=== PATIENT | female | born 1990 | race Asian ===

== ENCOUNTER 2025-04-29 06:04 | Emergency (ER) | payer OTHER, SELFPAY ==
[2025-04-29 06:11] VITALS: BP 122/80; PULSE 73; RESP 16; TEMP 36.9; O2SAT 100
[2025-04-29 06:12] VITALS: BMI 25.0
--- NOTE | 2025-04-29 06:20 | PD.EDVAGBL ---
ED OB Contraction Preg RMI/HPI General Chief complaint: Vaginal Bleeding Stated complaint: ABD PAIN,VAGINAL BLEEDING Time Seen by Provider: 04/29/25 06:20 Source: patient Arrival date/time: 04/29/25 06:04 Mode of arrival: ambulatory Limitations: no limitations RME / HPI RME / HPI Narrative: 34-year-old female presents to ED with complaint of vaginal bleeding that began 2 days ago. Last menstrual period was March 01, 2025. MD Complaint: abdominal pain and vaginal bleeding Onset (ago): day(s) (2 days that began spotting and is now vaginal bleeding.) Consistency: constant Location: abdomen (Left lower quadrant) Quality: cramping Related Data Previous Rx's ?Medication ?Instructions ?Recorded methotrexate sodium 15 mg tablet 30 mg (2 x 15 mg) PO .once 1 day 04/29/25 #2 tabs Allergies Allergy/AdvReac Type Severity Reaction Status Date / Time No Known Allergies Allergy Verified 04/29/25 06:09 Review of Systems Constitutional Constitutional: Reports system reviewed and no additional complaints, except as documented Eyes Eyes: Reports system reviewed and no additional complaints, except as documented, Denies dry eyes, Denies exophthalmos and Reports floaters Cardiovascular Cardiovascular: Denies chest pain with activity and Denies claudication ED Exam Narrative Physical exam: The abdomen is mildly tender to palpation in the left lower quadrant. There is no guarding and there is no apparent masses. General Limitations: Present no limitations General appearance: Present alert and in no apparent distress Head Head exam: Present atraumatic Eye Eye exam: Present normal appearance and EOMI ENT ENT exam: Present normal exam, normal oropharynx and mucous membranes moist Neck Neck exam: Present normal inspection, full ROM and trachea midline Respiratory Respiratory exam: Present normal lung sounds bilaterally Cardiovascular Cardiovascular exam: Present regular rate, normal rhythm and normal heart sounds Abdominal Exam Abdominal exam: Present soft, tenderness (There is mild tenderness to palpation in the left lower quadrant.) and normal bowel sounds Rectal Exam Rectal exam: Present deferred Extremities Exam Extremities exam: Present normal inspection and full ROM Back Exam Back exam: Present normal inspection and full ROM Neurological Exam Neurological exam: Present alert and oriented X3 Psychiatric Psychiatric exam: Present normal affect and normal mood Skin Skin exam: Present warm, dry, intact and normal color Course Course Course Narrative: Patient will have CBC, CMP, UA, hcg quality, US OB, RH. Quality Measures none Orders Category Date Time Status US OB <= 14 weeks fetus Stat Exams 04/29/25 06:28 Completed Beta HCG,Quantitative Stat Lab 04/29/25 06:52 Completed CBC Stat Lab 04/29/25 06:52 Completed CMP [Comprehensive Metabolic Panel] Stat Lab 04/29/25 06:52 Completed Lipase Stat Lab 04/29/25 06:52 Completed Rh Testing Only Stat Lab 04/29/25 06:52 Completed DONE Vital Signs Vital signs: Vital Signs Temperature 98.4 F 04/29/25 06:11 Pulse Rate 73 04/29/25 06:11 Respiratory Rate 16 04/29/25 06:11 Blood Pressure 122/80 04/29/25 06:11 Pulse Oximetry (%) 100 04/29/25 06:11 Oxygen Delivery Method Room Air 04/29/25 06:11 Pulse ox room air 100% Vaginal Bleeding MDM Narrative MDM Narrative: Patient has a left-sided ectopic , I consulted with Dr. Bates and Dr. LAUREN who will see the patient in the ED. I spoke with Dr. LAUREN who was sent to the pharmacy of the patient's choice methotrexate and the patient will follow-up with Dr. Lauren. She is discharged in no apparent distress. Patient data External records reviewed:: Other (specify) (NA) Clinical information provided by:: patient Social determinants that could affect healthcare access:: none (NA) Patient has the following chronic illnesses:: NA How is presenting disease/condition affected by chronic disease/condition?: no chronic disease (NO APPARENT CHRONIC DISEASE) Evaluation data The following diagnostics were reviewed and interpreted by me:: other (specify) (na) Lab and/or radiology exams considered but not ordered:: NA Interpretation Summary: NA Medications / Prescriptions Medications or Prescriptions considered but not ordered:: NA Medication administrations:: NA Consultations Consultation(s) initiated? (list below): No Consultation #1 (Physician, Specialty, Details): NA Diagnosis Vaginal Bleeding Differential Diagnosis: threatened , dysfunctional uterine bleeding and menometrorrhagia Most likely diagnosis given after review of the tests above:: NA Admission Indicated Admission indicated?: not indicated Explain why admission is indicated or not indicated:: Patient did not want to go to surgery and instead elected for methotrexate. Admission Request Was there a request for admission?: No Admission Attestation Admission request attestation: NA Disposition Plan Disposition Plan: Discharge Discharge Attestation Discharge Attestation: The patient and all family members were given an opportunity to ask questions and understood the discharge instructions. Discharge instructions specifically effects, indications for sooner follow up or return to the emergency department, and the expected course of current diagnosis. Patient condition: Stable Discharge Plan Plan Patient Disposition: HOME (Self Care) Discharge Disposition comment: HCG of 02/01 and 02/04. Return OBGYN clinic on 02/05 and 02/12 Patient condition on transfer: Stable Prescriptions/Referrals Prescriptions/Med Rec: New methotrexate sodium 15 mg tablet 30 mg PO .once 1 Days Qty: 2 0RF Referrals: No Primary/Family,Physician [Primary Care Provider] - In 1 week Outpatient Orders: Beta HCG,Quantitative (Routine) Timeframe: 20250506 Location: Determined by Patient Ordered By: Jon Lauren Beta HCG,Quantitative (Routine) Timeframe: 20250503 Location: Determined by Patient Ordered By: Jon Lauren Problem List Clinical Impression: Ectopic Patient/Caregiver Discharge Instructions Discharge Activity: activity as tolerated Print Language: Citizen Of [place] Stand Alone Forms: [employer] Award Info., Patient Portal Info Letter PA/APPLICATIONS SUPPORT SPECIALIST Supervising Physician PA/APPLICATIONS SUPPORT SPECIALIST Supervising Physician: BERNARDO
--- NOTE | 2025-04-29 06:28 | XR_ITS ---
Examination: Complete OB ultrasound, less than 14 weeks, transabdominal Date and time of exam: April 29, 2025 0752 hours INDICATIONS: Onset severe pelvic pain and vaginal bleeding today Technique: Obstetrical ultrasound images less than 14 weeks performed via transabdominal imaging Findings: Uterus 14.5 cm with anterior vascular uterine fundal mass 7.8 x 7.1 x 7.9 cm No intrauterine gestation Right ovary 9.5 cm arterial flow, 5.8 x 7.9 x 8.4 cm Left ovary 3.5 cm arterial flow, left fallopian ectopic CRL 0.5 cm correspondences 6 weeks 2 days gestational age, no cardiac motion IMPRESSION: Positive for left ectopic which appears within the fallopian tube
[2025-04-29 07:35] LABS: Basophils # (Auto) 0.1 Thou/mm3 (0.0-0.2); Basophils % (Auto) 1 % (0-2.5); Eosinophils # (Auto) 0.1 Thou/mm3 (0.0-0.5); Eosinophils % (Auto) 1 % (0-10); Hematocrit 26.5 % (36.0-46.0); Immature Granulocytes Auto 0.03 Thou/mm3 (0.00-0.00); Lymphocytes # (Auto) 1.1 Thou/mm3 (1.0-4.8); Lymphocytes % (Auto) 11 % (10-50); Mean Corpuscular HGB Conc 29.4 g/dl (31.0-37.0); Mean Corpuscular Hemoglobin 20.4 pg (25.0-35.0); Mean Corpuscular Volume 69 fL (80-100); Monocytes # (Auto) 0.4 Thou/mm3 (0.0-0.8); Monocytes % (Auto) 4 % (0-12); Neutrophils # (Auto) 8.7 Thou/mm3 (1.8-7.7); Neutrophils % (Auto) 84 % (37-80); Nucleated Red Blood Cell # 0.00 Thou/mm3 (0.00-0.00); Nucleated Red Blood Cell % 0 /100 WBC (0); Platelet Count 313 Thou/mm3 (140-440); RDW Standard Deviation 47.6 fL (36.4-46.3); Red Blood Count 3.83 Miln/mm3 (4.00-5.20); White Blood Count 10.4 Thou/mm3 (3.6-11.0)
[2025-04-29 07:38] LABS: Hemoglobin 7.8 g/dL (12.0-16.0)
[2025-04-29 07:40] LABS: Alanine Aminotransferase 21 U/L (10-49); Albumin, Serum 4.2 gm/dL (3.5-5.0); Albumin/Globulin Ratio 1.3 (1.2-2.2); Alkaline Phosphatase 42 U/L (46-116); Anion Gap 8 (7-16); Aspartate Amino Transferase 27 U/L (0-34); BUN/Creatinine Ratio 17 Ratio (12-20); Bilirubin,Total 0.3 mg/dL (0.3-1.2); Blood Urea Nitrogen 10 mg/dL (9-23); Calcium 8.8 mg/dL (8.3-10.6); Calcium (Corrected) 8.8 mg/dL (8.5-10.1); Carbon Dioxide 23.6 mMol/L (20.0-31.0); Chloride 108 mMol/L (98-107); Creatinine (Component) 0.6 mg/dL (0.6-1.3); Estimated Creatinine Clearance 98.4 mL/min (>60); Globulin 3.2 gm/dL (2.3-3.5); Glucose 110 mg/dL (74-106); Lipase 51 U/L (12-53); Osmolality,Calculated 279 (275-295); Potassium 3.9 mMol/L (3.4-5.1); Sodium 140 mMol/L (136-145); Total Protein 7.4 gm/dL (5.7-8.2); eGFR > 60 See Note
[2025-04-29 07:51] LABS: Beta HCG,Quantitative 1547 mIU/mL (<5.0)
[2025-04-29 09:37] VITALS: BP 121/77; PULSE 61; RESP 18; TEMP 37; O2SAT 100
--- NOTE | 2025-04-29 10:30 | ESCONSULT_ITS ---
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 The patient reports experiencing pain primarily in the lower left abdomen area. She states that she is a little bit better compared to her previous condition, suggesting some improvement in her symptoms. The ectopic has been confirmed through medical imaging and hormone level testing. The is located in the fallopian tube, measuring 6 weeks and 5 days with no detectable heartbeat. The patient's hormone level is 1500, which correlates with the imaging findings. The patient initially had limited understanding of what an ectopic entails and requested more detailed information from the physician. The patient expresses concern about potential dangers to future pregnancies. No other associated symptoms or impact on daily functioning were explicitly mentioned in the conversation. Obstetric History: A0 L0 Current : Ectopic , gestational age 6 weeks and 5 days, no heartbeat detected Medical History: Ectopic , currently 6 weeks and 5 days gestation Review of Systems: Positive for lower left abdominal pain. Diagnostic Test Results and Labs: - Ultrasound (TueApr 29 2025): Ectopic in fallopian tube, measuring 6 weeks and 5 days, no heartbeat detected - hCG (TueApr 29 2025): 1500 (units not specified) cc:: cc: Review of Systems Review of Systems Systems Reviewed: All systems reviewed, normal except as documented Meds Home Medications and Allergies Allergies Allergy/AdvReac Type Severity Reaction Status Date / Time No Known Allergies Allergy Verified 04/29/25 06:09 Exam - [employer] Vital Signs Temp Pulse Resp BP Pulse Ox O2 Del Method 98.6 F 61 18 121/77 100 Room Air 04/29/25 09:37 04/29/25 09:37 04/29/25 09:37 04/29/25 09:37 04/29/25 09:37 04/29/25 09:37 Constitutional Constitutional: no acute distress Routine HEENT Exam Head: Present normocephalic and atraumatic Eye: Present EOMI and PERRL ENT: Present mucous membranes moist Routine Neck Exam Neck: Present supple and trachea midline Routine Respiratory Exam Respiratory: Present chest non-tender, lungs clear, normal breath sounds and no resp distress Routine Cardiovascular Exam Cardiovascular: Present RRR Routine Abdominal Exam Abdominal: Present soft, normoactive bowel sounds and tenderness (LLQ, mild) Routine Extremities Exam Extremities: Present full ROM Routine Skin Exam Skin: Present intact and dry Routine Neurological Exam Neurological: Present alert, oriented X3 and CN II-XII intact Routine Psychiatric Exam Psychiatric: Present normal affect and normal thought process [employer] - Results Labs 04/29/25 06:52 04/29/25 06:52 Labs: Short CBC 04/29/25 Range/Units 06:52 WBC 10.4 (3.6-11.0) Thou/mm3 Hgb 7.8 L (12.0-16.0) g/dL Hct 26.5 L (36.0-46.0) % Plt Count 313 (140-440) Thou/mm3 BMP 04/29/25 06:52 Sodium 140 Potassium 3.9 Chloride 108 H Carbon Dioxide 23.6 BUN 10 Creatinine 0.6 Glucose 110 H Calcium 8.8 Liver Function 04/29/25 Range/Units 06:52 Total Bilirubin 0.3 (0.3-1.2) mg/dL AST 27 (0-34) U/L ALT 21 (10-49) U/L Alkaline Phosphatase 42 L (46-116) U/L Albumin 4.2 (3.5-5.0) gm/dL Assessment and Plan Assessment and plan (1) Ectopic without intrauterine : Status: Acute Assessment and plan: Ectopic : - Diagnosed with ectopic in left fallopian tube - Measuring 6 weeks and 5 days with no heartbeat - Hormone level at 1500, correlating with ultrasound findings - Non-viable with risk of rupture - Two treatment options discussed: medical management with methotrexate or surgical intervention via laparoscopy - Patient opted for medical management with methotrexate (90% success rate) - Patient underwent extensive counseling about risks, benefits, and alternatives - Patient given opportunity to ask questions - Patient verbalized understanding and made informed decision Plan: - Prescribe methotrexate: * One dose today * One dose tomorrow - Obtain baseline blood test today - Repeat blood test in 4 & 7 days (next Tuesday & Tuesday) - Follow-up appointment scheduled for Tuesday or Tuesday to review blood test results - If hormone levels decreasing: * Continue monitoring - If hormone levels not decreasing: * Reassess and consider surgical intervention - Maintain previously scheduled appointment with Janki Weston on the - Patient education provided on warning signs: * Worsening pain * Nausea * Vomiting * Weakness * Lightheadedness - Instructions given: * Return to emergency department if symptoms worsen * Return if patient changes mind about treatment plan
[2025-04-29 16:36] LABS: Path Review Blood Smear Sent to Pathologist
== END 2025-04-29 11:53 | disposition home or self-care (01) ==
PROVIDERS: Physician Assistant; Emergency Provider Emergency Medicine
DX: O00.90 Unspecified ectopic pregnancy without intrauterine pregnancy (principal); Z3A.01 Less than 8 weeks gestation of pregnancy
CPT/HCPCS: 36415; 76801; 80053; 83690; 84702; 85025; 86901; 99283

== ENCOUNTER 2025-04-29 14:18 | Outpatient (RCR) | payer OTHER, SELFPAY | END 2025-05-16 23:59 | disposition home or self-care (01) | LOC: SCTI 14:18 | PROVIDERS: PCP Obstetrics & Gynecology; Referring Provider Obstetrics & Gynecology; Visit Provider Obstetrics & Gynecology | DX: O00.90 Unspecified ectopic pregnancy without intrauterine pregnancy (principal) | CPT/HCPCS: 96372; J9260 ==

== ENCOUNTER → 2025-05-03 | Outpatient (CLI) | payer OTHER, SELFPAY ==
[2025-05-03 09:29] LABS: Beta HCG,Quantitative 2163 mIU/mL (<5.0)
== END | disposition home or self-care (01) ==
PROVIDERS: Referring Provider Obstetrics & Gynecology; Visit Provider Obstetrics & Gynecology
DX: O03.9 Complete or unspecified spontaneous abortion without complication (principal)
CPT/HCPCS: 36415; 84702

== ENCOUNTER → 2025-05-06 | Outpatient (CLI) | payer OTHER, SELFPAY ==
[2025-05-06 08:51] LABS: Beta HCG,Quantitative 1760 mIU/mL (<5.0)
== END | disposition home or self-care (01) ==
LOC: COPL 07:17
PROVIDERS: Referring Provider Obstetrics & Gynecology; Visit Provider Obstetrics & Gynecology
DX: O03.9 Complete or unspecified spontaneous abortion without complication (principal)
CPT/HCPCS: 36415; 84702

== ENCOUNTER 2025-05-07 10:48 | Outpatient (AMB) | payer OTHER, SELFPAY ==
--- NOTE | 2025-05-07 10:50 | GYNCLNT_ITS ---
Vital Signs 05/07/25 10:55 Height 1.47 m Height Method Stated Weight 56.019 kg Weight Measurement Method Standing Scale BMI 25.9 BP 113/74 Blood Pressure Source Automatic Cuff Blood Pressure Location Right Upper Arm Position Sitting Respiration 17 Pulse 64 Pulse Source Monitor Temp 98.4 F Temp Source Temporal Artery Scan Pulse Oximetry (%) 99 Oxygen Delivery Method Room Air Allergies/Home Meds Allergies & Medications Allergies No Known Allergies Allergy (Verified 05/07/25 10:56) Medication Reconciliation No Known Home Medications 05/07/25 [History Confirmed 05/07/25] Intake Visit Data Collection New Patient or Established: Established Patient (seen at [facility] within 3 years) Reason for Visit:: LAB RESULTS Seen by Clinical Staff ONLY (RN/MA): No Gasket Winder Required: No Do You Feel Safe at Home: Yes Authorities Contacted: N/A PCP or OBGYN visit in last 3 months: Yes Date of Last PCP or OBGYN visit: 04/29/25 Hx Now: No Are you currently on any form of Control: No Pain Present Currently: No Pain Scale Used: Pinto-Hood/Numerical Pain scale:: 0 Smoking Status Smoking Status: Never smoker 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 1. Little interest or pleasure in doing things: not at all 2. Feeling down, depressed, or hopeless: not at all Total score: 0 PHQ-9 3. Trouble falling or staying asleep, or sleeping too much: Not at all 4. Feeling tired or having little energy: Not at all 5. Poor appetite or overeating: Not at all 6. Feeling bad about yourself - or that you are a failure or have let yourself or your family down: Not at all 7. Trouble concentrating on things, such as reading the newspaper or watching television: Not at all 8. Moving or speaking so slowly that other people could have noticed? - Or the opposite - being so fidgety or restless that you have been moving around a lot more than usual: not at all 9. Thoughts that you would be better off or of hurting yourself in some way: Not at all Total score: 0 If you checked off any problems, how difficult have these problems made it for you to do your work, take care of things at home, or get along with other people?: not difficult at all Source: Developed by Drs. Soy López, Estefania Hanson, Giovnay Mendoza and colleagues, with an educational daisy from [employer]. Depression screen completed yes Social History Living Situation History Marital Status: Lives With: Family Housing: House Tobacco History Smoking Status: Never smoker Second Hand Smoke Exposure: No Alcohol History Alcohol Intake: Never Domestic Abuse History Do You Feel Safe at Home: Yes History of Present Illness HPI Narrative This is a 35-year-old 1 para 0 that was seen in the office today for an ER follow-up. Patient was in the ER for left abdominal pain and left ectopic. Patient was treated with methotrexate x 2 and then advised to repeat her hCG May 03 and again on May 06. Patient reports that pain is almost gone she is not taking any pain medicine for that. She feels better. 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 No other complaints. No increasing in pain no nausea no vomiting no dizziness. Review of Systems Review of Systems Systems Reviewed: All systems reviewed, normal except as documented Exam Narrative Physical exam: abdomen soft, non tender, no rebound,no masses General Limitations: no limitations General Appearance: alert, in no apparent distress, comfortable, cooperative, healthy appearing, well developed and well groomed Head Head exam: atraumatic, normocephalic and normal inspection Chest Chest inspection: Present normal inspection and symmetric chest wall rise Resp Respiratory exam: Present normal lung sounds bilaterally Card Cardiovascular exam: Present regular rate, normal rhythm and normal heart sounds Abdominal Abdominal exam: Present soft and normal bowel sounds Psych Psychiatric exam: Present normal affect and normal mood Results Objective Laboratory: HCG 04/29: 1547. 7 hc. 7 HC. these results show downward trend Office Procedures OB Clinic LOC & Office Proc's Nursing/Assessment Patient Status: Established Patient OB Clinic Nursing Assessment: Medication Reconciliation, Update PMH in EMR and Vital Signs OB Clinic Coordination of Care: Complex Care and Chronic Disease 1-5, Consent,records obtained, informed consent, Education Simp Pt/Fam, Lab and Imaging orders, Results/Orders obtained and Staff clarify orders Established Patient Charge Established Patient Point Assignment: 105 Established Patient Point Charge: EP Level 3 (80-115) Assessment & Plan Diagnosis / Problem List (1) Ectopic without intrauterine : Status: Acute Qualifiers: Location of ectopic : tubal Laterality: left Qualified Code(s): O00.102 - Left tubal without intrauterine Plan discuss HCG results with patient. reviewed danger s/s. repeat HCG 05/10. Follow up with MD next week for results. reviewed ER precaution with patient Additional Plan Follow Up: 1 Week (f/u on labs/ectopic)
[2025-05-07 10:55] VITALS: BP 113/74; PULSE 64; RESP 17; TEMP 36.9; O2SAT 99; BMI 25.9
== END 2025-05-07 11:45 | disposition home or self-care (01) ==
LOC: HODSOBC 10:48
PROVIDERS: Supervising Provider Advanced Practice Midwife; Visit Provider Advanced Practice Midwife
DX: O00.90 Unspecified ectopic pregnancy without intrauterine pregnancy (principal)
CPT/HCPCS: 99213; G0463

== ENCOUNTER → 2025-05-10 | Outpatient (CLI) | payer OTHER, SELFPAY ==
[2025-05-10 16:28] LABS: Beta HCG,Quantitative 858 mIU/mL (<5.0)
== END | disposition home or self-care (01) ==
LOC: COPL 14:35
PROVIDERS: Referring Provider Advanced Practice Midwife; Visit Provider Advanced Practice Midwife
DX: O20.0 Threatened abortion (principal); Z3A.00 Weeks of gestation of pregnancy not specified
CPT/HCPCS: 36415; 84702

== ENCOUNTER 2025-05-17 08:25 | Outpatient (AMB) | payer OTHER, SELFPAY ==
[2025-05-17 08:41] VITALS: BP 119/73; PULSE 72; RESP 17; TEMP 37.2; O2SAT 99; BMI 25.8
--- NOTE | 2025-05-17 08:41 | OBCLNT_ITS ---
Vital Signs 05/17/25 08:41 Height 1.47 m Height Method Measured Weight 55.792 kg Weight Measurement Method Standing Scale BMI 25.8 BP 119/73 Blood Pressure Source Automatic Cuff Blood Pressure Location Right Upper Arm Position Sitting Respiration 17 Pulse 72 Pulse Source Monitor Temp 98.9 F Temp Source Temporal Artery Scan Pulse Oximetry (%) 99 Oxygen Delivery Method Room Air Allergies/Home Meds Allergies & Medications Allergies No Known Allergies Allergy (Verified 05/07/25 10:56) Intake Visit Data Collection New Patient or Established: Established Patient (seen at [facility] within 3 years) Reason for Visit:: ETOPIC FOLLOW UP Consent obtained for Telemed Visit: No Seen by Clinical Staff ONLY (RN/MA): No 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 1. Little interest or pleasure in doing things: not at all PHQ-9 8. Moving or speaking so slowly that other people could have noticed? - Or the opposite - being so fidgety or restless that you have been moving around a lot more than usual: not at all Source: Developed by Drs. Soy López, Estefania Hanson, Giovany Mendoza and colleagues, with an educational daisy from [employer]. Social History Living Situation History Lives With: Family Housing: House Tobacco History Smoking Status: Never smoker Second Hand Smoke Exposure: No Alcohol History Alcohol Intake: Never Domestic Abuse History Do You Feel Safe at Home: Yes History of Present Illness HPI Narrative Patient presents for follow-up of ectopic treated with methotrexate on 04/29/2025. She reports overall feeling good with her HCG levels showing a steady downward trend, consistent with response to methotrexate. The patient denies any pain or discomfort specifically related to her ectopic . She mentions experiencing occasional stomach discomfort that comes and goes, which she attributes to possibly eating too much rather than being related to her ectopic . She has adhered to the prescribed treatment plan and follow-up schedule. Patient expresses relief at having avoided surgery, which was a primary goal of her treatment. Her obstetric history includes A1 L0. The current is an ectopic , treated with methotrexate on April 29, 2025. HCG levels are showing downward trend, consistent with response to methotrexate. Patient is currently S/P IM methotrexate, which was given on 04-29-2025 for ectopic . She reports intermittent stomach discomfort. Exam General General Appearance: alert, in no apparent distress and healthy appearing Head Head exam: atraumatic Neck Neck exam: Present normal inspection and trachea midline Chest Chest inspection: Present normal inspection and symmetric chest wall rise External exam: Present normal external exam; Absent tenderness Neuro Neurological exam: Present oriented X3 Psych Psychiatric exam: Present normal affect and normal mood Office Procedures OB Clinic LOC & Office Proc's Nursing/Assessment Patient Status: Established Patient OB Clinic Nursing Assessment: Medication Reconciliation, Update PMH in EMR and Vital Signs OB Clinic Coordination of Care: Complex Care and Chronic Disease 1-5, Consent,records obtained, informed consent, Education Simp Pt/Fam and 4+ Authorizations needed Established Patient Charge Established Patient Point Assignment: 100 Established Patient Point Charge: EP Level 3 (80-115) Assessment & Plan Diagnosis / Problem List (1) Ectopic without intrauterine : Status: Acute Qualifiers: Laterality: left Location of ectopic : tubal Qualified Code(s): O00.102 - Left tubal without intrauterine Plan Ectopic : - Treated with methotrexate on 04/29/2025. - Serial hCG levels show appropriate response to treatment: ? 04/29 (initial): 1547 ? 05/03 (day 4): 2163 ? 05/06 (day 7): 1760 ? 05/10 (most recent): 858 - Downward trend consistent with effective response to methotrexate therapy. - Patient denies significant pain or discomfort related to the ectopic . Plan: - Repeat hCG level on 05/24 or 05/25/2025. - Follow up with tele-visit to discuss results. - Anticipate hCG level to be close to zero or less than 50. - Continue monitoring for any new or worsening symptoms.
== END 2025-05-17 09:01 | disposition home or self-care (01) ==
LOC: HODSOBC 08:25
PROVIDERS: Supervising Provider Obstetrics & Gynecology; Visit Provider Obstetrics & Gynecology
DX: O00.90 Unspecified ectopic pregnancy without intrauterine pregnancy (principal)
CPT/HCPCS: 99213; G0463

== ENCOUNTER → 2025-05-24 | Outpatient (CLI) | payer OTHER, SELFPAY ==
[2025-05-24 16:34] LABS: Beta HCG,Quantitative 58 mIU/mL (<5.0)
== END | disposition home or self-care (01) ==
LOC: COPL 14:17
PROVIDERS: PCP Internal Medicine; Referring Provider Obstetrics & Gynecology; Visit Provider Obstetrics & Gynecology
DX: O00.102 Left tubal pregnancy without intrauterine pregnancy (principal)
CPT/HCPCS: 36415; 84702